=== PATIENT | female | born 1980 | race African-American/Black ===

== ENCOUNTER → 2019-09-14 | Outpatient (REF) | payer MEDICAID ==
[2019-09-14 13:20] LABS: BASO # 0.1 10^3/uL (0.0-0.2); BASO % 0.8 % (0.0-1.0); EOS # 0.2 10^3/uL (0.0-0.5); EOS % 1.8 % (0.0-3.0); HEMATOCRIT 42.6 % (36.0-47.0); HEMOGLOBIN 15.2 g/dl (12.0-15.5); LYMPH # 2.8 10^3/uL (1.5-5.0); LYMPH % 31.5 % (24.0-44.0); MEAN CORPUSCULAR HEMOGLOBIN 30.6 pg (27.0-33.0); MEAN CORPUSCULAR HGB CONC 35.7 g/dl (32.0-36.5); MEAN CORPUSCULAR VOLUME 85.7 fl (80.0-96.0); MONO # 0.8 10^3/uL (0.0-0.8); MONO % 8.9 % (0.0-5.0); NEUTROPHILS % 56.7 % (36.0-66.0); PLATELET COUNT, AUTOMATED 263 10^3/uL (150-450); RED BLOOD COUNT 4.97 10^6/uL (4.00-5.40); WHITE BLOOD COUNT 8.8 10^3/uL (4.0-10.0)
[2019-09-14 13:35] LABS: BILIRUBIN,TOTAL 0.4 MG/DL (0.2-1.0); CALCIUM LEVEL 8.8 MG/DL (8.5-10.1); CHOLESTEROL RISK RATIO 3.275 (<5); CREATININE FOR GFR 1.23 MG/DL (0.55-1.30); FREE T4 0.9 NG/DL (0.76-1.46); GLOMERULAR FILTRATION RATE 52.6 (>60); POTASSIUM SERUM 4.3 MEQ/L (3.5-5.1); THYROID STIMULATING HORMONE 2.42 uIU/ML (0.358-3.740); TOTAL 25(OH) VITAMIN D 15.4 NG/ML (30.0-100.0); TOTAL PROTEIN 7.1 GM/DL (6.4-8.2)
[2019-09-14 13:42] LABS: HEMOGLOBIN A1c 5.6 %
== END ==
LOC: M LAB REF 12:33
PROVIDERS: ATTEND Nurse Practitioner Family
DX: Z00.01 Encounter for general adult medical examination with abnormal findings (principal)

== ENCOUNTER 2020-07-23 10:40 | Emergency (ER) | payer MEDICAID ==
[~2020-07-23] VITALS: Ht 167.6 cm; Wt 128.2 kg
[2020-07-23] MEDS ORDERED: QUET400T42 PO (10:53)
[2020-07-23] MEDS ORDERED: PROP10TA56 PO (10:53)
[2020-07-23] MEDS ORDERED: IBUP-1022 PO (10:53)
[2020-07-23] MEDS ORDERED: QC A650T3 PO (10:53)
[2020-07-23] MEDS ORDERED: LIDOCAINE 5% (LIDODERM) PATCH TD ONE (12:15)
--- NOTE | 2020-07-23 16:33 | REP ---
INDICATION: low back pain, radiating RLE, reported saddle anesthesia. Patient gives a history of a significant fall in 2015. COMPARISON: None. TECHNIQUE: Sagittal and axial T1 and T2-weighted scans are acquired in the usual fashion with and without fat saturation. Sequences include spin echo, turbo spin-echo, and STIR imaging sequences. FINDINGS: Incidental note is made of a partially visualized cyst in the left kidney 2.2 cm in greatest diameter. No other extra spinal abnormality is observed. Lumbar vertebral body heights are preserved. Alignment is normal. Tip of the conus medullaris is normal in position and appearance at L1. Axial and sagittal images at the L1-2, L2-3, and L3-4 intervertebral disc level show no evidence of disc protrusion, central canal stenosis, or foraminal encroachment. At L4-5, there is minimal diffuse disc bulging. There is slight facet hypertrophy bilaterally at L4-5. No focal disc protrusion is seen. No spinal stenosis or foraminal narrowing is observed. At L5-S1, there is degenerative disc disease. Anterior spur and posterior osteophytic ridging are seen associated with diffuse disc bulging. Bulging disc contacts the exiting S1 root bilaterally but they do not appear displaced or compressed. There is minimal facet hypertrophy. Mild right-sided neural foraminal narrowing is present due to facet hypertrophy and disc bulging. Exam is otherwise unremarkable. IMPRESSION: There is degenerative disc disease and osteoarthritic facet hypertrophy at L5-S1. There is mild right-sided neural foraminal narrowing at L5-S1 due to disc bulging and facet hypertrophy. Partially visualized left renal cyst. <Electronically signed by Miguel Ángel Malave > 07/23/20 [id number]
[2020-07-23] MEDS ORDERED: PRED20TA PO (17:23)
[2020-07-23] MEDS ORDERED: ROBA750T4 PO (17:23)
[2020-07-23 17:45] VITALS: BP 147/95
[2020-07-23] MEDS ORDERED: **NOTE PATIENT COMMENT** MISC XX SCH (21:00)
== END 2020-07-23 17:47 | disposition home or self-care (01) ==
LOC: M ED 10:40
DX: M54.16 Radiculopathy, lumbar region (principal); M51.26 Other intervertebral disc displacement, lumbar region; M54.5 Low back pain; N28.1 Cyst of kidney, acquired; I10 Essential (primary) hypertension; E66.9 Obesity, unspecified; F41.9 Anxiety disorder, unspecified; F17.200 Nicotine dependence, unspecified, uncomplicated; Z79.899 Other long term (current) drug therapy; Z91.018 Allergy to other foods